=== PATIENT | male | born 1980 | race American Indian/Alaskan Native ===

== ENCOUNTER 2019-04-11 17:23 | Emergency (ER) | payer SELFPAY ==
[2019-04-11 17:24] VITALS: BMI 22.6
[2019-04-11 17:38] VITALS: BP 134/84; PULSE 97; RESP 18; TEMP 97.7; O2SAT 99
[2019-04-11] MEDS ORDERED: MAGNESIUM PO STA (18:08)
[2019-04-11] MEDS ORDERED: VISCOUS PO STA (18:08)
[2019-04-11] MEDS ORDERED: ALUMINUM HYDROXIDE PO STA (18:08)
[2019-04-11] MEDS ORDERED: DIPHENHYDRAMINE PO STA (18:08)
[2019-04-11] MEDS ORDERED: LIDOCAINE 2% PO STA (18:08)
--- NOTE | 2019-04-11 18:17 | ED PDOC ---
Arrival/HPI - General Chief Complaint: Dental Pain Historian: Patient - History of Present Illness Narrative History of Present Illness (Text): 04/11/19 18:17 38M w/ h/o mouth abscess presenting to the Emergency Room with complaint of right sided mouth pain. He reports the pain beginning several days ago with swelling, difficulty chewing and intermittent drooling. He attempted to take Tylenol and warm water gargles for his pain which did not alleviate his pain. He reports previous similar instances in which he went to the dentist and had an infected tooth removed. He denies any fevers, chills, chest pain, shortness of breath, jaw misalignment, difficulty biting, bleeding, or purulent discharge from the tooth. No PMD Time/Duration: < week Symptom Onset: Gradual Symptom Course: Unchanged Activities at Onset: Significant Context: Home Past Medical History - Provider Review Nursing Documentation Reviewed: Yes - Travel History Have you recently traveled outside [place] w/in the past 3 mons?: No - Past Medical History Past Medical History: No Previous - Psychiatric Hx Depression: No Hx Emotional Abuse: No Hx Physical Abuse: No Hx Substance Use: No - Past Surgical History Past Surgical History: No Previous - Suicidal Assessment Feels Threatened In Home Enviroment: No Family/Social History - Physician Review Nursing Documentation Reviewed: Yes Family/Social History: Unknown Family HX Smoking Status: Heavy Smoker > 10 Cigarettes Daily Hx Alcohol Use: Yes (SOCIALLY) Frequency of alcohol use: Few days per week Hx Substance Use: No Hx Substance Use Treatment: No Allergies/Home Meds Allergies/Adverse Reactions: Allergies No Known Allergies Allergy (Verified 04/11/19 17:38) Review of Systems - Physician Review All systems were reviewed & negative as marked: Yes - Review of Systems ENT: Other (R sided jaw swelling) Physical Exam Vital Signs Reviewed: Yes Vital Signs Temp Pulse Resp BP Pulse Ox 04/11/19 17:35 97.7 F 97 H 18 134/84 99 Temperature: Afebrile Blood Pressure: Normal Pulse: Regular Respiratory Rate: Normal Appearance: Positive for: Well-Appearing, Non-Toxic, Comfortable Mental Status: Positive for: Alert and Oriented X 3 - Systems Exam Head: Present: Atraumatic, Normocephalic Pupils: Present: PERRL Extroacular Muscles: Present: EOMI Conjunctiva: Present: Normal Mouth: Present: Moist Mucous Membranes, Normal Lips, Normal Tounge, Normal Teeth, Other (Swelling noted to soft palate on the right mandible. No evidence of purulent discharge from hard palate). No: Drooling Pharnyx: No: ERYTHEMA, EXUDATE, TONSILS ENLARGED, Peritonsilar Swelling, Uvular Deviation, Soft Palate/Uvular Edema Neck: Present: Normal Range of Motion Respiratory/Chest: Present: Clear to Auscultation, Good Air Exchange. No: Respiratory Distress Neurological: Present: CN II-XII Intact, Speech Normal, Motor Func Grossly Intact, Normal Sensory Function Skin: Present: Warm, Dry, Normal Color Psychiatric: Present: Alert, Oriented x 3, Normal Insight, Normal Concentration Medical Decision Making ED Course and Treatment: 04/11/19 18:37 Impression 38M w/ h/o dental abscess presenting to the Emergency Room with abscess Plan --Magic mouthwash --Clindamycin PO --Reassessment and disposition Progress Notes - Lab Interpretations Lab Results: Impression Plan Progress Notes - Medication Orders Current Medication Orders: Clindamycin HCl (Cleocin) 300 mg PO STAT STA; Protocol Stop: 04/11/19 18:09 Disposition/Present on Arrival - Present on Arrival Any Indicators Present on Arrival: No History of DVT/PE: No History of Uncontrolled Diabetes: No Urinary Catheter: No History of Decub. Ulcer: No History Surgical Site Infection Following: None - Disposition Have Diagnosis and Disposition been Completed?: Yes Diagnosis: Dental abscess Disposition: HOME/ ROUTINE Disposition Time: 18:48 Patient Plan: Discharge Condition: STABLE Discharge Instructions (ExitCare): Dental Pain (DC), Tooth Abscess (DC) Print Language: GIBRALTAR[place] Additional Instructions: Please visit on the following dental clinics for further evaluation: 1. [facility] [address] [place], [place] [id number] [address] [facility] [address] [place] [id number] 3.[facility] [address] [place] [address] Prescriptions: Clindamycin [Cleocin] 300 mg PO Q12 10 Days #20 cap Mag&Al/Simet/Diphen/Lido [First Magic Mouthwash] 30 ml MM Q4H #2 kit Referrals: Margarita Blair MD [Medical Doctor] - Follow up with primary [facility] [place] [facility] [place] - Follow up with primary Forms: [employer] (Mauritian), WORK NOTE
== END 2019-04-11 19:10 | disposition home or self-care (01) ==
LOC: ED 17:23
DX: K04.7 Periapical abscess without sinus (principal); F17.210 Nicotine dependence, cigarettes, uncomplicated